=== PATIENT | female | born 1980 | race Hispanic/Latino ===

== ENCOUNTER 2022-09-29 17:15 | Emergency (ER) | payer OTHER ==
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
[2022-09-29 20:21] VITALS: BP 123/88; O2SAT 100
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
== END 2022-09-29 18:51 | disposition home or self-care (01) ==
LOC: ER 17:15
DX: S09.90XA Unspecified injury of head, initial encounter (principal); S16.1XXA Strain of muscle, fascia and tendon at neck level, initial encounter; V49.49XA Driver injured in collision with other motor vehicles in traffic accident, initial encounter; Z88.6 Allergy status to analgesic agent
CPT/HCPCS: 70450; 72125; 99284